=== PATIENT | male | born 2000 ===

== ENCOUNTER 2018-04-25 08:31 | Outpatient (CLI) | payer OTHER ==
[~2018-04-25] VITALS: Ht 213.4 cm; Wt 68.0 kg
== END 2018-04-25 08:45 | disposition home or self-care (01) ==
LOC: OFIC 805 08:31
DX: E04.1 Nontoxic single thyroid nodule (principal); R22.1 Localized swelling, mass and lump, neck; R42 Dizziness and giddiness; H61.23 Impacted cerumen, bilateral

== ENCOUNTER 2018-06-25 09:50 | Outpatient (CLI) | payer OTHER ==
[~2018-06-25] VITALS: Ht 152.4 cm; Wt 68.0 kg
== END 2018-06-25 10:10 | disposition home or self-care (01) ==
LOC: OFIC 805 09:50
DX: E04.1 Nontoxic single thyroid nodule (principal); R42 Dizziness and giddiness; H93.13 Tinnitus, bilateral

== ENCOUNTER 2018-08-01 09:33 | Outpatient (CLI) | payer OTHER ==
[~2018-08-01] VITALS: Ht 152.4 cm; Wt 68.0 kg
== END 2018-08-01 09:45 | disposition home or self-care (01) ==
LOC: OFIC 805 09:33
DX: R22.1 Localized swelling, mass and lump, neck (principal); E04.1 Nontoxic single thyroid nodule